=== PATIENT | female | born 1950 | race Caucasian/White ===

== ENCOUNTER 2023-10-19 18:20 | Inpatient (IN) | payer MEDICAID, MEDICARE ==
[~2023-10-19] VITALS: Ht 160 cm; Wt 116.8 kg
[2023-10-19 18:35] VITALS: BP 140/81; PULSE 103; RESP 22; TEMP 97.4; O2SAT 93
[2023-10-19] MEDS ORDERED: NACL 0.9% 1,000 ML IV SCH (18:35)
[2023-10-19 18:55] VITALS: PULSE 105; RESP 26; O2SAT 94
[2023-10-19] MEDS: IPRATROPIUM 0.02% 0.5 MG/2.5 ML NEBU INH ONE (19:01)
[2023-10-19] MEDS: ALBUTEROL 0.083% 2.5 MG/3 ML NEBU INH ONE (19:01)
[2023-10-19 19:14] LABS: HEMATOCRIT 34.5 % (36-48); HEMOGLOBIN 10.7 g/dL (12.0-16.0); LYMPHOCYTES # (AUTO) 0.4 K/uL (2.5-16.5); LYMPHOCYTES % (AUTO) 5.5 % (20.5-51.1); MEAN CORPUSCULAR HEMOGLOBIN 30 pg (27-31); MEAN CORPUSCULAR HGB CONC 31 g/dL (33-37); MEAN CORPUSCULAR VOLUME 97.6 fL (80-94); MONOCYTES # (AUTO) 0.2 K/uL (0.8-1.0); MONOCYTES % (AUTO) 2.3 % (1.7-9.3); NEUTROPHILS # (AUTO) 7.2 K/uL (1.8-7.7); NEUTROPHILS % (AUTO) 92.2 % (42.2-75.2); PLATELET COUNT (AUTO) 131 K/uL (140-450); RED BLOOD CELL COUNT(AUTO) 3.54 MIL/uL (4.20-5.40); RED CELL DISTRIBUTION WIDTH 15.5 % (11.6-13.7); WHITE BLOOD COUNT (AUTO) 7.8 K/uL (4.8-10.8)
[2023-10-19] MEDS: methylPREDNISolone SS 125 MG/2 ML VIAL IVP ONE (19:27)
[2023-10-19 19:34] LABS: FLU A ANTIGEN negative (NEGATIVE); FLU B ANTIGEN NEGATIVE (NEGATIVE)
[2023-10-19 19:41] LABS: ALANINE AMINOTRANSFERASE 30 U/L (12-78); ALBUMIN 3.1 g/dL (3.4-5.0); ALKALINE PHOSPHATASE 104 U/L (50-136); ASPARTATE AMINOTRANSFERASE 19 U/L (15-37); CALCIUM 8.5 mg/dL (8.5-10.1); CHLORIDE 101 mmol/L (98-107); CREATININE 1.2 mg/dL (0.6-1.3); GLUCOSE 161 mg/dL (74-106); POTASSIUM 4.5 mmol/L (3.5-5.1); SODIUM SERUM 147 mmol/L (136-145); TOTAL BILIRUBIN 0.4 mg/dL (0.0-1.0); TOTAL PROTEIN, SERUM 6.6 g/dL (6.4-8.2); UREA NITROGEN, BLOOD 30 mg/dL (7-18)
[2023-10-19 19:46] LABS: CARBON DIOXIDE 41.5 mmol/L (21-32)
[2023-10-19] MEDS: MAG SULF 2000 MG/WATER PREMIX 50 ML IV ONE (19:48)
[2023-10-19 19:49] LABS: LACTIC ACID 1.9 mmol/L (0.4-2.0)
[2023-10-19] MEDS ORDERED: ONDANSETRON 4 MG/2 ML VIAL IM/IVP PRN (21:25)
[2023-10-19] MEDS ORDERED: ACETAMINOPHEN 325 MG TAB PO PRN (21:25)
[2023-10-19] MEDS ORDERED: HYDROcodone/APAP 7.5/325 MG 1 TAB PO PRN (21:25)
[2023-10-19] MEDS ORDERED: DOCUSATE SODIUM 100 MG GELCAP PO PRN (21:25)
[2023-10-19] MEDS ORDERED: POTASSIUM CHLORIDE 10 MEQ TABER PO PRN (21:25)
[2023-10-19] MEDS ORDERED: ZOLPIDEM 5 MG TAB PO PRN (21:25)
[2023-10-19] MEDS ORDERED: guaiFENesin DM 200/20 MG-10 ML 10 ML UDC PO PRN (21:25)
[2023-10-19] MEDS: LEVOFLOXACIN 750 MG/D5W PREMIX 150 ML IV ONE (21:32)
[2023-10-19 21:40] LABS: APPEARANCE,URINE CLEAR (CLEAR); BILIRUBIN,URINE NEGATIVE (NEGATIVE); BLOOD, URINE NEGATIVE (NEGATIVE); COLOR,URINE YELLOW (YELLOW); LEUKOCYTE ESTERASE ,URINE NEGATIVE (NEGATIVE); NITRITE, URINE NEGATIVE (NEGATIVE); PROTEIN,URINE TRACE (NEGATIVE); UGLUCOSE NEGATIVE (NEGATIVE); UROBILINOGEN,URINE 0.2 EU/dL (0.2 - 1)
[2023-10-19 21:44] LABS: BACTERIA,URINE 0-2 /HPF (None Seen); MUCUS,URINE None Seen /LPF (None Seen); RBC,URINE 0 /HPF (0-5); SQUAMOUS EPITHELIAL CELL,UR 0-3 (FEW) /LPF (0-3 (FEW)); WBC,URINE 0-5 /HPF (0-5)
[2023-10-19] MEDS ORDERED: FURO-570 PO (22:58)
[2023-10-19] MEDS ORDERED: CHOL5000 PO (22:58)
[2023-10-19] MEDS ORDERED: DOCU50LI8 GT (22:58)
[2023-10-19] MEDS ORDERED: LORA5SOL77 PO (22:58)
[2023-10-19] MEDS ORDERED: HUM SUBQ (22:58)
[2023-10-19] MEDS ORDERED: DAPS100T PO (22:58)
[2023-10-19] MEDS ORDERED: APIX5TAB PO (22:58)
[2023-10-19] MEDS ORDERED: ACET-2619 PO (22:58)
[2023-10-19] MEDS ORDERED: ASCO500T95 PO (22:58)
[2023-10-19] MEDS ORDERED: GABA100C PO (22:58)
[2023-10-19] MEDS ORDERED: ATOR40TA PO (22:58)
[2023-10-19] MEDS ORDERED: FERR325E14 PO (22:58)
[2023-10-19] MEDS ORDERED: CRAN450T5 PO (22:58)
[2023-10-19] MEDS ORDERED: ROB1 PO (22:58)
[2023-10-19] MEDS ORDERED: ALBU3SOL83 IH (22:58)
[2023-10-19] MEDS ORDERED: VITB12 PO (22:58)
[2023-10-19] MEDS ORDERED: GLYC30DR3 LEFT EYE (22:58)
[2023-10-19] MEDS ORDERED: FLUO10TA PO (22:58)
[2023-10-19] MEDS ORDERED: ASPI-1822 PO (22:58)
[2023-10-19] MEDS ORDERED: INSU100I7 SQ (22:58)
[2023-10-19] MEDS ORDERED: BISA-218 RC (22:58)
[2023-10-19] MEDS ORDERED: VITA1TAB44 PO (22:58)
[2023-10-19] MEDS ORDERED: PUL.5N INH (22:58)
[2023-10-19] MEDS ORDERED: MELA5SGL PO (22:58)
[2023-10-19] MEDS ORDERED: GLUC1VIA (22:58)
[2023-10-19 23:15] VITALS: BP 121/71; PULSE 81; RESP 20; TEMP 97.1; O2SAT 94
[2023-10-19] MEDS: NACL 0.9% 1,000 ML IV SCH (23:57)
[2023-10-19] MEDS: DOXYCYCLINE 200 MG in DEXTROSE 5% 250 ML IV SCH (23:57)
[2023-10-19] MEDS: DOXYCYCLINE 100 MG VIAL IV ONE (23:58)
[2023-10-20] VITALS (10 sets, daily range): BP systolic 93–152; BP diastolic 49–84; PULSE 68–127; RESP 17–36; TEMP 97.8–98.3; O2SAT 88–98
[2023-10-20] MEDS: ALBUTEROL SULFATE/IPRATROPIU 3 ML SOL IH PRN (07:16)
[2023-10-20 07:22] LABS: HEMATOCRIT 33.4 % (36-48); HEMOGLOBIN 10.5 g/dL (12.0-16.0); LYMPHOCYTES # (AUTO) 0.5 K/uL (2.5-16.5); LYMPHOCYTES % (AUTO) 5.6 % (20.5-51.1); MEAN CORPUSCULAR HEMOGLOBIN 30 pg (27-31); MEAN CORPUSCULAR HGB CONC 31 g/dL (33-37); MEAN CORPUSCULAR VOLUME 96.7 fL (80-94); MONOCYTES # (AUTO) 0.3 K/uL (0.8-1.0); MONOCYTES % (AUTO) 3.5 % (1.7-9.3); NEUTROPHILS # (AUTO) 7.4 K/uL (1.8-7.7); NEUTROPHILS % (AUTO) 90.9 % (42.2-75.2); PLATELET COUNT (AUTO) 127 K/uL (140-450); RED BLOOD CELL COUNT(AUTO) 3.46 MIL/uL (4.20-5.40); RED CELL DISTRIBUTION WIDTH 15.3 % (11.6-13.7); WHITE BLOOD COUNT (AUTO) 8.2 K/uL (4.8-10.8)
[2023-10-20 07:48] LABS: ALANINE AMINOTRANSFERASE 29 U/L (12-78); ALBUMIN 2.8 g/dL (3.4-5.0); ALKALINE PHOSPHATASE 96 U/L (50-136); ASPARTATE AMINOTRANSFERASE 16 U/L (15-37); CALCIUM 8.7 mg/dL (8.5-10.1); CARBON DIOXIDE 38.5 mmol/L (21-32); CHLORIDE 102 mmol/L (98-107); CREATININE 1.1 mg/dL (0.6-1.3); GLUCOSE 142 mg/dL (74-106); POTASSIUM 4.5 mmol/L (3.5-5.1); SODIUM SERUM 147 mmol/L (136-145); TOTAL BILIRUBIN 0.5 mg/dL (0.0-1.0); TOTAL PROTEIN, SERUM 6.3 g/dL (6.4-8.2); UREA NITROGEN, BLOOD 30 mg/dL (7-18)
[2023-10-20] MEDS: PANTOPRAZOLE 40 MG TABEC PO SCH (09:59)
[2023-10-20] MEDS: APIXABAN 2.5 MG TAB PO SCH (10:04)
[2023-10-20 14:29] LABS: BLOOD GAS PH 7.449 (7.35-7.45)
[2023-10-20 14:30] LABS: BLOOD GAS PCO2 51.9 mmHg (35-45); BLOOD GAS PO2 40.1 mmHg (75-100)
[2023-10-20 14:31] LABS: BLOOD GAS BASE EXCESS 9.7 mmol/L (-2.0-2.0); BLOOD GAS HCO3 35.2 mmol/L (22-26); BLOOD GAS O2 SAT% 75.7 % (92.0-98.5)
[2023-10-20] MEDS ORDERED: MELATONIN PO SCH (17:00)
[2023-10-20] MEDS: ATORVASTATIN 20 MG TAB PO SCH (21:00)
[2023-10-20] MEDS ORDERED: APIXABAN 2.5 MG TAB PO SCH (21:00)
[2023-10-21] VITALS (15 sets, daily range): BP systolic 90–122; BP diastolic 36–67; PULSE 57–98; RESP 20–31; TEMP 97–98.4; O2SAT 93–100
[2023-10-21] MEDS: ALBUTEROL SULFATE/IPRATROPIU 3 ML SOL IH SCH (02:21)
[2023-10-21 07:28] LABS: BASOPHILS % (AUTO) 0.2 % (0.0-2.0); EOSINOPHILS % (AUTO) 0.1 % (0.0-4.0); HEMATOCRIT 27.9 % (36-48); LYMPHOCYTES # (AUTO) 1.3 K/uL (2.5-16.5); LYMPHOCYTES % (AUTO) 27.2 % (20.5-51.1); MEAN CORPUSCULAR HEMOGLOBIN 31 pg (27-31); MEAN CORPUSCULAR HGB CONC 32 g/dL (33-37); MEAN CORPUSCULAR VOLUME 95.7 fL (80-94); MONOCYTES # (AUTO) 0.2 K/uL (0.8-1.0); MONOCYTES % (AUTO) 3.7 % (1.7-9.3); NEUTROPHILS # (AUTO) 3.3 K/uL (1.8-7.7); NEUTROPHILS % (AUTO) 68.8 % (42.2-75.2); PLATELET COUNT (AUTO) 114 K/uL (140-450); RED BLOOD CELL COUNT(AUTO) 2.91 MIL/uL (4.20-5.40); RED CELL DISTRIBUTION WIDTH 15.4 % (11.6-13.7); WHITE BLOOD COUNT (AUTO) 4.8 K/uL (4.8-10.8)
[2023-10-21 07:51] LABS: ALANINE AMINOTRANSFERASE 21 U/L (12-78); ALBUMIN 2.3 g/dL (3.4-5.0); ALKALINE PHOSPHATASE 68 U/L (50-136); ANION GAP 10.4 (8-16); ASPARTATE AMINOTRANSFERASE 26 U/L (15-37); CALCIUM 8.1 mg/dL (8.5-10.1); CARBON DIOXIDE 36.4 mmol/L (21-32); CHLORIDE 104 mmol/L (98-107); CREATININE 1.7 mg/dL (0.6-1.3); GLUCOSE 92 mg/dL (74-106); POTASSIUM 4.8 mmol/L (3.5-5.1); SODIUM SERUM 146 mmol/L (136-145); TOTAL BILIRUBIN 0.7 mg/dL (0.0-1.0); TOTAL PROTEIN, SERUM 5.3 g/dL (6.4-8.2); UREA NITROGEN, BLOOD 40 mg/dL (7-18)
[2023-10-21] MEDS: GABAPENTIN 100 MG CAP PO SCH (09:00)
[2023-10-21] MEDS: DOCUSATE 100 MG/10 ML UDC GT SCH (09:00)
[2023-10-21] MEDS: ASPIRIN 81 MG TAB.CHEW GT SCH (09:00)
[2023-10-21] MEDS: FLUoxetine 10 MG CAP PO SCH (09:00)
[2023-10-21] MEDS: ASCORBIC ACID 500 MG TAB PO SCH (09:00)
[2023-10-21] MEDS: VIT-B COMP/VIT-C/FOLIC ACID 1 TAB PO SCH (09:00)
[2023-10-21] MEDS: GLYCOPYRROLATE 1 MG TAB GT SCH (09:00)
[2023-10-21] MEDS: FUROSEMIDE 40 MG/4 ML VIAL IVP SCH (09:00)
[2023-10-21] MEDS ORDERED: DAPSONE 100 MG TAB GT SCH (09:00)
[2023-10-21] MEDS: FERROUS SULFATE 325 MG TABEC PO SCH (09:00)
[2023-10-21] MEDS ORDERED: FUROSEMIDE 40 MG/5 ML ORAL SOL UDC PO SCH (09:00)
[2023-10-21] MEDS: ALBUMIN HUMAN 25% 50 ML IV SCH (10:43)
[2023-10-22] VITALS (13 sets, daily range): BP systolic 103–148; BP diastolic 50–73; PULSE 60–82; RESP 20–28; TEMP 97–98; O2SAT 95–100
[2023-10-22 07:04] LABS: BASOPHILS % (AUTO) 0.2 % (0.0-2.0); EOSINOPHILS % (AUTO) 0.6 % (0.0-4.0); HEMATOCRIT 27.8 % (36-48); HEMOGLOBIN 8.9 g/dL (12.0-16.0); LYMPHOCYTES # (AUTO) 1.2 K/uL (2.5-16.5); LYMPHOCYTES % (AUTO) 22.7 % (20.5-51.1); MEAN CORPUSCULAR HEMOGLOBIN 31 pg (27-31); MEAN CORPUSCULAR HGB CONC 32 g/dL (33-37); MONOCYTES # (AUTO) 0.2 K/uL (0.8-1.0); MONOCYTES % (AUTO) 3.4 % (1.7-9.3); NEUTROPHILS # (AUTO) 3.8 K/uL (1.8-7.7); NEUTROPHILS % (AUTO) 73.1 % (42.2-75.2); PLATELET COUNT (AUTO) 111 K/uL (140-450); RED CELL DISTRIBUTION WIDTH 15.5 % (11.6-13.7); WHITE BLOOD COUNT (AUTO) 5.2 K/uL (4.8-10.8)
[2023-10-22 07:37] LABS: ALANINE AMINOTRANSFERASE 21 U/L (12-78); ALBUMIN 2.5 g/dL (3.4-5.0); ALKALINE PHOSPHATASE 65 U/L (50-136); ANION GAP 12.4 (8-16); ASPARTATE AMINOTRANSFERASE 19 U/L (15-37); CALCIUM 7.8 mg/dL (8.5-10.1); CARBON DIOXIDE 33.1 mmol/L (21-32); CHLORIDE 106 mmol/L (98-107); CREATININE 1.5 mg/dL (0.6-1.3); GLUCOSE 102 mg/dL (74-106); POTASSIUM 3.5 mmol/L (3.5-5.1); SODIUM SERUM 148 mmol/L (136-145); TOTAL BILIRUBIN 0.9 mg/dL (0.0-1.0); TOTAL PROTEIN, SERUM 5.4 g/dL (6.4-8.2); UREA NITROGEN, BLOOD 38 mg/dL (7-18)
[2023-10-22] MEDS: DOXYCYCLINE 100 MG in DEXTROSE 5% 100 ML IV SCH (21:00)
[2023-10-23] VITALS (15 sets, daily range): BP systolic 117–144; BP diastolic 62–81; PULSE 73–102; RESP 18–36; TEMP 97.2–98.4; O2SAT 94–100
[2023-10-23 05:43] LABS: BASOPHILS % (AUTO) 0.2 % (0.0-2.0); EOSINOPHILS # (AUTO) 0.1 K/uL (0-0.4); EOSINOPHILS % (AUTO) 1.1 % (0.0-4.0); HEMATOCRIT 26.7 % (36-48); HEMOGLOBIN 8.5 g/dL (12.0-16.0); LYMPHOCYTES # (AUTO) 1.2 K/uL (2.5-16.5); LYMPHOCYTES % (AUTO) 26.4 % (20.5-51.1); MEAN CORPUSCULAR HEMOGLOBIN 30 pg (27-31); MEAN CORPUSCULAR HGB CONC 32 g/dL (33-37); MEAN CORPUSCULAR VOLUME 95.8 fL (80-94); MONOCYTES # (AUTO) 0.2 K/uL (0.8-1.0); MONOCYTES % (AUTO) 3.6 % (1.7-9.3); NEUTROPHILS % (AUTO) 68.7 % (42.2-75.2); PLATELET COUNT (AUTO) 119 K/uL (140-450); RED BLOOD CELL COUNT(AUTO) 2.78 MIL/uL (4.20-5.40); RED CELL DISTRIBUTION WIDTH 15.6 % (11.6-13.7); WHITE BLOOD COUNT (AUTO) 4.4 K/uL (4.8-10.8)
[2023-10-23 06:19] LABS: ALANINE AMINOTRANSFERASE 22 U/L (12-78); ALBUMIN 2.6 g/dL (3.4-5.0); ALKALINE PHOSPHATASE 65 U/L (50-136); ANION GAP 14.8 (8-16); ASPARTATE AMINOTRANSFERASE 20 U/L (15-37); CALCIUM 7.9 mg/dL (8.5-10.1); CARBON DIOXIDE 29.4 mmol/L (21-32); CHLORIDE 109 mmol/L (98-107); CREATININE 1.3 mg/dL (0.6-1.3); GLUCOSE 92 mg/dL (74-106); POTASSIUM 3.2 mmol/L (3.5-5.1); SODIUM SERUM 150 mmol/L (136-145); TOTAL BILIRUBIN 0.9 mg/dL (0.0-1.0); TOTAL PROTEIN, SERUM 5.6 g/dL (6.4-8.2); UREA NITROGEN, BLOOD 30 mg/dL (7-18)
[2023-10-23] MEDS ORDERED: POTASSIUM CHLORIDE 40 MEQ in NACL 0.9% 250 ML IV SCH (10:55)
[2023-10-23] MEDS: POTASSIUM CHLORIDE 40 MEQ, LIDOCAINE 1% 25 MG in NACL 0.9% 250 ML IV SCH (12:15)
[2023-10-23] MEDS: DEXT 5% /NACL 0.9% 1,000 ML IV SCH (12:31)
[2023-10-24] VITALS (11 sets, daily range): BP systolic 119–146; BP diastolic 65–74; PULSE 79–102; RESP 19–25; TEMP 36.4; O2SAT 0–100
[2023-10-24] MEDS: ALBUTEROL SULFATE/IPRATROPIU 3 ML SOL IH SCH (01:19)
[2023-10-24 05:48] LABS: BASOPHILS % (AUTO) 0.7 % (0.0-2.0); EOSINOPHILS # (AUTO) 0.1 K/uL (0-0.4); EOSINOPHILS % (AUTO) 2.6 % (0.0-4.0); HEMATOCRIT 27.1 % (36-48); HEMOGLOBIN 8.6 g/dL (12.0-16.0); LYMPHOCYTES # (AUTO) 1.5 K/uL (2.5-16.5); LYMPHOCYTES % (AUTO) 28.2 % (20.5-51.1); MEAN CORPUSCULAR HEMOGLOBIN 31 pg (27-31); MEAN CORPUSCULAR HGB CONC 32 g/dL (33-37); MEAN CORPUSCULAR VOLUME 96.3 fL (80-94); MONOCYTES # (AUTO) 0.3 K/uL (0.8-1.0); MONOCYTES % (AUTO) 4.7 % (1.7-9.3); NEUTROPHILS # (AUTO) 3.4 K/uL (1.8-7.7); NEUTROPHILS % (AUTO) 63.8 % (42.2-75.2); PLATELET COUNT (AUTO) 139 K/uL (140-450); RED BLOOD CELL COUNT(AUTO) 2.82 MIL/uL (4.20-5.40); RED CELL DISTRIBUTION WIDTH 15.6 % (11.6-13.7); WHITE BLOOD COUNT (AUTO) 5.4 K/uL (4.8-10.8)
[2023-10-24 06:15] LABS: ALANINE AMINOTRANSFERASE 21 U/L (12-78); ALBUMIN 2.8 g/dL (3.4-5.0); ALKALINE PHOSPHATASE 67 U/L (50-136); ANION GAP 10.3 (8-16); ASPARTATE AMINOTRANSFERASE 18 U/L (15-37); CALCIUM 8.1 mg/dL (8.5-10.1); CARBON DIOXIDE 31.2 mmol/L (21-32); CHLORIDE 110 mmol/L (98-107); CREATININE 1.3 mg/dL (0.6-1.3); GLUCOSE 130 mg/dL (74-106); POTASSIUM 3.5 mmol/L (3.5-5.1); SODIUM SERUM 148 mmol/L (136-145); TOTAL BILIRUBIN 0.8 mg/dL (0.0-1.0); UREA NITROGEN, BLOOD 25 mg/dL (7-18)
== END 2023-10-24 15:35 | DRG 720 ==
LOC: MED 19:35 → MTU 21:26
PROVIDERS: ADMIT Student in an Organized Health Care Education/Training Program; ATTEND Student in an Organized Health Care Education/Training Program
PROC: 5A1945Z Respiratory Ventilation, 24-96 Consecutive Hours (ICD-10-PCS; principal; 2023-10-20)
PROC: 02HV33Z Insertion of Infusion Device into Superior Vena Cava, Percutaneous Approach (ICD-10-PCS; 2023-10-21)
PROC: B548ZZA Ultrasonography of Superior Vena Cava, Guidance (ICD-10-PCS; 2023-10-21)
DX: A41.9 Sepsis, unspecified organism (principal); J96.21 Acute and chronic respiratory failure with hypoxia; I50.43 Acute on chronic combined systolic (congestive) and diastolic (congestive) heart failure; J18.9 Pneumonia, unspecified organism; G70.00 Myasthenia gravis without (acute) exacerbation; J44.0 Chronic obstructive pulmonary disease with (acute) lower respiratory infection; N39.0 Urinary tract infection, site not specified; I11.0 Hypertensive heart disease with heart failure; E11.9 Type 2 diabetes mellitus without complications; B96.20 Unspecified Escherichia coli [E. coli] as the cause of diseases classified elsewhere; Z93.0 Tracheostomy status; Z16.23 Resistance to quinolones and fluoroquinolones; Z68.42 Body mass index [BMI] 45.0-49.9, adult; E66.9 Obesity, unspecified; J40 Bronchitis, not specified as acute or chronic; Z86.711 Personal history of pulmonary embolism; Z88.0 Allergy status to penicillin; Z88.2 Allergy status to sulfonamides; Z79.899 Other long term (current) drug therapy
CPT/HCPCS: 36415; 36600; 71045; 80053; 81001; 82803; 82948; 83605; 83880; 84484; 85025; 87040; 87081; 87086; 92526; 93005; 94002; 94003; 94640; 96365; 96366; 96367; 96375; 99291; J1940; J1956; J2001; J2930; J3475; J3480; J3490; J7030; J7060; J7613; J7644; P9046